=== PATIENT | male | born 1950 | race Caucasian/White ===

== ENCOUNTER 2016-11-23 18:16 | Emergency (ER) | payer OTHER ==
--- NOTE | 2016-11-23 18:30 | EDM.PDOC ---
ED HPI GENERAL MEDICAL PROBLEM - General Chief Complaint: Bite:Animal, Insect Stated Complaint: dog bite to right wrist Time Seen by Provider: 11/23/16 18:16 Source of Information: Reports: Patient, RN, RN Notes Reviewed History Limitations: Reports: No Limitations - History of Present Illness INITIAL COMMENTS - FREE TEXT/NARRATIVE: Patient presents to the emergency room at [facility] after he was bit by a dog. The patient states he is the cut off [employer] of the dog. The patient states the dog is up-to-date with all immunizations. The patient states his 2 dogs were fighting and he tried to intervene. At which time the patient was bit on the dorsum of the right wrist. The patient is not sure if his tetanus immunization is up-to-date. The patient states the affected area is slightly tender. Otherwise no other symptoms. Onset: Today Onset Date: 11/23/16 Onset Time: 17:45 - Related Data Home Meds: Home Meds Amoxicillin/Potassium Clav [Augmentin 875-125 Tablet] 1 each PO BID #18 tablet 11/23/16 [Rx] Past Medical History - Past Health History Medical/Surgical History: Denies Medical/Surgical History ED ROS GENERAL - Review of Systems Review Of Systems: See Below Constitutional: Denies: Fever, Chills, Weakness Respiratory: Denies: Shortness of Breath, Cough Cardiovascular: Denies: Chest Pain, Palpitations Skin: Reports: Wound (dog bite to right wrist) Neurological: Reports: No Symptoms. Denies: Numbness, Paresthesia, Tingling ED EXAM, ANIMAL BITE - Physical Exam Exam: See Below Exam Limited By: No Limitations General Appearance: Alert, No Apparent Distress Respiratory/Chest: No Respiratory Distress, Lungs Clear, Normal Breath Sounds Cardiovascular: Regular Rate, Rhythm Peripheral Pulses: 2+: Radial (L), Radial (R) Extremities: Normal Capillary Refill Neurological: Alert, Oriented Skin Exam: Normal Color, Warm/Dry, Other (Skin abrasion to the dorsum of the right wrist; no bleeding or evidence of infection; area slightly erythematous) ED ANIMAL BITE PROCEDURES - Laceration/Wound Repair Right Dorsal Wrist Appearance: Superficial, Clean Distal NVT: Neuro & Vascular Intact, No Tendon Injury Skin Prep: Chlorhexidine (Hibiciens), Saline Saline Irrigation (cc's): 50 Exploration/Debridement/Repair: No Foreign Material Found, Wound Margins Revised Closed With: Dermabond Sterile Dressing Applied: Provider Tetanus Status Addressed: Yes Complications: No Progress/Comments: Unable to measure abrasion given its orientation; Dermabond applied to abrasion as a precautionary measure Departure - Departure Time of Disposition: 18:30 Disposition: Home, Self-Care 01 Condition: good Clinical Impression: Skin abrasion Dog bite of wrist Qualifiers: Encounter type: initial encounter Laterality: right Qualified Code(s): S61.551A - Open bite of right wrist, initial encounter; W54.0XXA - Bitten by dog , initial encounter - Discharge Information Prescriptions: Amoxicillin/Potassium Clav [Augmentin 875-125 Tablet] 1 each PO BID #18 tablet Instructions: Animal Bite, Tissue Adhesive Wound Care Referrals: Tan Meza MD [Ordering Only Provider] - Forms: ED Department Discharge Additional Instructions: 1. Stay well hydrated and rest 2. Keep bite area clean and dry 3. May shower/bathe as usual 4. Take antibiotics for the full coarse of 10 days, even if bite area is looking better 5. See your Primary was symptoms warrant - Problem List Review Problem List Initiated/Reviewed/Updated: Yes
[2016-11-23] MEDS ORDERED: Take Home: Amoxicillin/Clavulanate K 875-125 MG Tab, 2 Tab Pack PO ONE (18:32)
[2016-11-23 18:34] VITALS: BP 154/83
== END 2016-11-23 19:11 | disposition home or self-care (01) ==
LOC: VM.ED 18:16
DX: S61.551A Open bite of right wrist, initial encounter (principal); W54.0XXA Bitten by dog, initial encounter
CPT/HCPCS: 12002; 99283; A9270